=== PATIENT | male | born 1945 | race Caucasian/White ===

== ENCOUNTER 2017-06-17 06:56 | Day surgery (SDC) | payer OTHER ==
[2017-06-17] MEDS ORDERED: BUPIVACAINE/EPI 0.5% 10 ML SOL INFIL ONE (07:25)
[2017-06-17] MEDS ORDERED: BUPIVACAINE HCL 0.5% MPF 10 ML SOL ONE (07:46)
[2017-06-17] MEDS ORDERED: FENTANYL 100MCG/2ML SOL ONE ×3 (07:48→09:22)
[2017-06-17] MEDS ORDERED: PROPOFOL 10 MG/ML EMU IV ONE (07:49)
[2017-06-17] MEDS ORDERED: LIDOCAINE HCL 1% MPF SOL ONE (07:49)
[2017-06-17] MEDS ORDERED: ROCURONIUM BROMIDE 10 MG/ML SOL IV ONE (07:54)
[2017-06-17] MEDS ORDERED: SUCCINYLCHOLINE CHLORIDE 20 MG/ML SOL IV ONE (07:54)
[2017-06-17] MEDS ORDERED: BUPIVACAINE HCL 0.25% MPF 10 ML SOL INFIL ONE ×2 (09:57→09:58)
[2017-06-17 10:50] VITALS: O2SAT 94
[2017-06-17 11:12] VITALS: RESP 20; TEMP 98
[2017-06-17] MEDS ORDERED: KETOROLAC TROMETHAMINE 30 MG/ML SOL ONE (11:23)
[2017-06-17 11:48] VITALS: BP 158/94; PULSE 72
== END 2017-06-17 12:10 | disposition home or self-care (01) | DRG 395 ==
LOC: SURG 06:56
PROVIDERS: ATTEND Surgery
DX: K40.21 Bilateral inguinal hernia, without obstruction or gangrene, recurrent (principal)
CPT/HCPCS: J0330; J1885; J3010; A6402; C1781; J2001; J2704; J3490